=== PATIENT | female | born 1940 ===

== ENCOUNTER 2017-07-17 06:38 | Day surgery (SDC) | payer OTHER ==
[2017-07-14 13:35] VITALS: BMI 29.9
[2017-07-17] MEDS ORDERED: Propofol 10 mg/ml Inj (20 ML) ONE (08:05)
[2017-07-17] MEDS ORDERED: Ketamine 50 mg/ml Inj (10 ml) ONE (08:06)
[2017-07-17] MEDS ORDERED: Lidocaine Hydrochloride 5 ML INJ ONE (08:09)
[2017-07-17] MEDS ORDERED: Lactated Ringer's 500 ML IV SCH (08:15)
[2017-07-17 09:00] VITALS: TEMP 97; O2SAT 100
[2017-07-17 09:36] VITALS: BP 141/67; PULSE 71; RESP 16
== END 2017-07-17 10:20 | disposition home or self-care (01) ==
LOC: C.ENDO 06:38
PROVIDERS: ATTEND Internal Medicine Gastroenterology
DX: K55.20 Angiodysplasia of colon without hemorrhage (principal); D12.5 Benign neoplasm of sigmoid colon; K29.50 Unspecified chronic gastritis without bleeding; K44.9 Diaphragmatic hernia without obstruction or gangrene; K57.30 Diverticulosis of large intestine without perforation or abscess without bleeding; D12.3 Benign neoplasm of transverse colon; K64.2 Third degree hemorrhoids; D50.9 Iron deficiency anemia, unspecified
CPT/HCPCS: 43239; 45380; 45385; 45388; 82948; 88305; J2704; J7120